=== PATIENT | male | born 1990 ===

== ENCOUNTER 2022-02-26 13:28 | Outpatient (NON) | payer BC, SELFPAY | END 2022-02-26 13:29 | disposition home or self-care (01) | LOC: ANHLAB 13:28 | PROVIDERS: Visit Provider Surgery Plastic and Reconstructive Surgery | DX: C44.41 Basal cell carcinoma of skin of scalp and neck (principal); C44.519 Basal cell carcinoma of skin of other part of trunk | CPT/HCPCS: 88305; 88331 ==